=== PATIENT | female | born 1990 | race Caucasian/White ===

== ENCOUNTER 2023-02-19 18:03 | Outpatient (CLI) | payer OTHER, SELFPAY | END 2023-02-19 18:04 | disposition home or self-care (01) | LOC: LKVREF 18:06 | PROVIDERS: Visit Provider Physician Assistant | DX: R10.13 Epigastric pain (principal) | CPT/HCPCS: 80076 ==

== ENCOUNTER 2023-02-24 18:39 | Emergency (ER) | payer OTHER, SELFPAY ==
[2023-02-24 18:50] VITALS: BP 127/82; PULSE 94; RESP 16; TEMP 36.4; O2SAT 99; BMI 27.5
--- NOTE | 2023-02-24 19:12 | ED.GENADULT ---
HPI - General Adult General Chief complaint: Back Injury/Pain Stated complaint: Back and abdominal pain Time Seen by Provider: 02/24/23 19:09 History of Present Illness HPI narrative: 1.5 weeks abdominal pain that wraps around to the back. Was recently seen at for this. Ibuprofen and moving around helps pain to improve. Has not tried any other medications. States greasy food typically makes pain worse. Was supposed to see PCP today but appointment got cancelled. Also reports feeling very bloated since this began. 32-year-old woman presenting to the emergency department with complaint of right upper abdominal pain wrapping around to her back. Been going on now for about 2 weeks. Was seen in urgent care last week with normal transaminases and urinalysis. Was recommended for an ultrasound it looks like. Does not have a family history of gallbladder disease. Pain seems to be present most mornings in the morning getting a little bit better over the course of the day though admittedly greasy foods will make it worse. She describes a pressure and a general bloating and then again radiating into the right back but seems to be wrapping around the upper abdomen and sometimes as well. Is not worsened with movement. She does not have any back issues. With this pain sometimes will taken ibuprofen and may improve it. Was to see be seen in primary care today but sounds like the appointment was canceled. Does not have a family history of biliary/gallbladder disease. Related Data Previous Rx's Medication Instructions Recorded omeprazole 40 mg capsule,delayed 40 mg PO DAILY #15 caps 02/24/23 release Allergies Allergy/AdvReac Type Severity Reaction Status Date / Time No Known Drug Allergies Allergy Verified 02/24/23 18:53 Review of Systems Status of ROS: Reports: 6 or more systems reviewed and unremarkable except as noted in History and below [facility] Medical History Epigastric pain ?R10.13 - Epigastric pain (ICD-10) Social History Smoking Status: Never smoker Do you use any of these nicotine containing products: None Second hand tobacco smoke exposure: No How often do you have a drink containing alcohol: 2-4 times a month How many standard drinks containing alcohol do you have on a typical day: 1 or 2 How often do you have six or more drinks on one occasion: Never AUDIT-C Alcohol total score: 2 Non-prescribed substance use: denies use service: No Exam Narrative: Exam Narrative: Pleasant. NAD. Skin is warm and dry. No rashes evident. Breathing easily. Heart in an elevated rate but regular rhythm. No murmur rub or gallop identified. Lungs are clear. Abdomen is soft. Does seem little full generally but not tympanitic. She is mildly uncomfortable to palpation in the right upper quadrant and epigastrium. Absent Davidson's. No percussive flank tenderness. Rotates in the bed without apparent difficulty. Abdomen otherwise soft and without masses nontender. Const: Vital Signs, click to edit/add: Vital Signs - 24 hr 02/24/23 18:50 Temperature 97.6 F Pulse Rate [Pulse Oximeter] 94 Respiratory Rate 16 Blood Pressure [Ri ght Upper Arm] 127/82 Pulse Oximetry 99 Oxygen Delivery Me thod Room Air Documenting provider has reviewed patient's vital signs: yes Course Vital Signs Vital signs: Initial Vital Signs Temperature 97.6 F 02/24/23 18:50 Temperature Source Temporal Artery Scan 02/24/23 18:50 Pulse Rate 94 02/24/23 18:50 Pulse Rhythm Regular 02/24/23 18:50 Pulse Strength 3+ Normal 02/24/23 18:50 Respiratory Rate 16 02/24/23 18:50 Blood Pressure 127/82 02/24/23 18:50 Blood Pressure Mean 97 02/24/23 18:50 Blood Pressure Position Sitting 02/24/23 18:50 Pulse Oximetry 99 02/24/23 18:50 Oxygen Delivery Method Room Air 02/24/23 18:50 Vital Signs Temperature 97.6 F 02/24/23 18:50 Pulse Rate 94 02/24/23 18:50 Respiratory Rate 16 02/24/23 18:50 Blood Pressure 127/82 02/24/23 18:50 Pulse Oximetry 99 02/24/23 18:50 Oxygen Delivery Method Room Air 02/24/23 18:50 Temperature 97.6 F 02/24/23 18:50 Pulse Rate 94 02/24/23 18:50 Respiratory Rate 16 02/24/23 18:50 Blood Pressure 127/82 02/24/23 18:50 Pulse Oximetry 99 02/24/23 18:50 Oxygen Delivery Method Room Air 02/24/23 18:50 Medical Decision Making MDM Narrative Medical decision making narrative: Certainly gallbladder disease/biliary colic is leading in differential. Could be related to the pancreas as well. Possibly urinary tract does not otherwise seem to have any urinary tract symptoms. Other vascular disruption or issue. Does not seem to have pulmonary symptoms consistent with low-lying pneumonia. This is not clearly reproducible to suggest a musculoskeletal etiology. At this point will request ultrasound and repeat labs. Ultrasound noted to be unremarkable per my conversation with forming yardage control operator. Radiology over-read noted same. 4 mm common bile duct. Labs are unremarkable with normal transaminases though with lipase pending on departure. Story still seems to be biliary colic. At this point would recommend outpatient follow-up, perhaps for HIDA scan or other? See patient discharge plan Medical Records Medical records reviewed: Yes I reviewed the patient's medical records Lab Data Lab results reviewed: Yes I reviewed the patient's lab results Labs: Lab Results 02/24/23 02/24/23 02/24/23 Range/Units 19:42 19:52 19:52 WBC 7.80 (4.50-11.00) K/uL RBC 4.92 (4.00-5.20) m/uL Hgb 12.4 (12.0-16.0) gm/dL Hct 39.6 (33.0-51.0) % MCV 81 (80-100) fL MCH 25 L (26-34) pg MCHC 31 L (32-36) gm/dL RDW Coeff of Jose 14.7 (11.5-15.5) % Plt Count 313 (140-440) K/uL Neut % (Auto) 67.6 (42.0-72.0) % Lymph % (Auto) 21.8 (20-44) % [place] % (Auto) 8.8 (0.0-11.0) % Eos % (Auto) 1.3 (0.0-7.0) % Baso % (Auto) 0.4 (0.0-3.0) % Neut # (Auto) 5.27 (1.7-7.0) K/uL Lymph # (Auto) 1.70 (0.90-2.90) K/uL [place] # (Auto) 0.70 (0.00-0.90) K/UL Eos # (Auto) 0.10 (0.00-0.50) K/uL Baso # (Auto) 0.03 (0.00-0.30) K/uL Abs Immat Gran (auto) 0.01 (0.00-0.30) K/uL Imm/Tot Granulo (auto) 0.1 % Sodium Cancelled 138 Potassium Cancelled Chloride Carbon Dioxide Anion Gap BUN Creatinine Estimated Creat Clear Estimated GFR Glucose Calcium Total Bilirubin (0.1-1.5) mg/dL Direct Bilirubin (0.0-0.5) mg/dL AST (12-35) U/L ALT (4-35) U/L Alkaline Phosphatase (40-150) U/L Total Protein (6.0-8.3) g/dL Albumin (3.3-5.0) g/dL Lipase (23-300) U/L Urine Color Yellow (Yellow) Urine Appearance Clear (Clear) Urine pH 7.5 (5.0-8.5) Ur Specific [place] 1.015 (1.000-1.030) Urine Protein Negative (Negative) Urine Glucose (UA) Negative (Negative) Urine Ketones Negative (Negative) Urine Blood Negative (Negative) Urine Nitrite Negative (Negative) Urine Bilirubin Negative (Negative) Urine Urobilinogen 0.2 (0.2-1.0) Ur Leukocyte Esterase Negative (Negative) Urine RBC 0-2 (0-2) Urine WBC 0-2 (0-5) Ur Squamous Epith Cells None (None-Few) Urine Bacteria Moderate A (None) 02/24/23 02/24/23 02/24/23 Range/Units 19:52 19:52 19:52 WBC (4.50-11.00) K/uL RBC (4.00-5.20) m/uL Hgb (12.0-16.0) gm/dL Hct (33.0-51.0) % MCV (80-100) fL MCH (26-34) pg MCHC (32-36) gm/dL RDW Coeff of Jose (11.5-15.5) % Plt Count (140-440) K/uL Neut % (Auto) (42.0-72.0) % Lymph % (Auto) (20-44) % [place] % (Auto) (0.0-11.0) % Eos % (Auto) (0.0-7.0) % Baso % (Auto) (0.0-3.0) % Neut # (Auto) (1.7-7.0) K/uL Lymph # (Auto) (0.90-2.90) K/uL [place] # (Auto) (0.00-0.90) K/UL Eos # (Auto) (0.00-0.50) K/uL Baso # (Auto) (0.00-0.30) K/uL Abs Immat Gran (auto) (0.00-0.30) K/uL Imm/Tot Granulo (auto) % Sodium Potassium 3.7 Chloride Cancelled 105 Carbon Dioxide Cancelled 26 Anion Gap Cancelled BUN Creatinine Estimated Creat Clear Estimated GFR Glucose Calcium Total Bilirubin (0.1-1.5) mg/dL Direct Bilirubin (0.0-0.5) mg/dL AST (12-35) U/L ALT (4-35) U/L Alkaline Phosphatase (40-150) U/L Total Protein (6.0-8.3) g/dL Albumin (3.3-5.0) g/dL Lipase (23-300) U/L Urine Color (Yellow) Urine Appearance (Clear) Urine pH (5.0-8.5) Ur Specific [place] (1.000-1.030) Urine Protein (Negative) Urine Glucose (UA) (Negative) Urine Ketones (Negative) Urine Blood (Negative) Urine Nitrite (Negative) Urine Bilirubin (Negative) Urine Urobilinogen (0.2-1.0) Ur Leukocyte Esterase (Negative) Urine RBC (0-2) Urine WBC (0-5) Ur Squamous Epith Cells (None-Few) Urine Bacteria (None) 02/24/23 02/24/23 02/24/23 Range/Units 19:52 19:52 19:52 WBC (4.50-11.00) K/uL RBC (4.00-5.20) m/uL Hgb (12.0-16.0) gm/dL Hct (33.0-51.0) % MCV (80-100) fL MCH (26-34) pg MCHC (32-36) gm/dL RDW Coeff of Jose (11.5-15.5) % Plt Count (140-440) K/uL Neut % (Auto) (42.0-72.0) % Lymph % (Auto) (20-44) % [place] % (Auto) (0.0-11.0) % Eos % (Auto) (0.0-7.0) % Baso % (Auto) (0.0-3.0) % Neut # (Auto) (1.7-7.0) K/uL Lymph # (Auto) (0.90-2.90) K/uL [place] # (Auto) (0.00-0.90) K/UL Eos # (Auto) (0.00-0.50) K/uL Baso # (Auto) (0.00-0.30) K/uL Abs Immat Gran (auto) (0.00-0.30) K/uL Imm/Tot Granulo (auto) % Sodium Potassium Chloride Carbon Dioxide Anion Gap 7 BUN Cancelled 11 Creatinine Cancelled 0.6 Estimated Creat Clear Cancelled Estimated GFR Glucose Calcium Total Bilirubin (0.1-1.5) mg/dL Direct Bilirubin (0.0-0.5) mg/dL AST (12-35) U/L ALT (4-35) U/L Alkaline Phosphatase (40-150) U/L Total Protein (6.0-8.3) g/dL Albumin (3.3-5.0) g/dL Lipase (23-300) U/L Urine Color (Yellow) Urine Appearance (Clear) Urine pH (5.0-8.5) Ur Specific [place] (1.000-1.030) Urine Protein (Negative) Urine Glucose (UA) (Negative) Urine Ketones (Negative) Urine Blood (Negative) Urine Nitrite (Negative) Urine Bilirubin (Negative) Urine Urobilinogen (0.2-1.0) Ur Leukocyte Esterase (Negative) Urine RBC (0-2) Urine WBC (0-5) Ur Squamous Epith Cells (None-Few) Urine Bacteria (None) 02/24/23 02/24/23 02/24/23 Range/Units 19:52 19:52 19:52 WBC (4.50-11.00) K/uL RBC (4.00-5.20) m/uL Hgb (12.0-16.0) gm/dL Hct (33.0-51.0) % MCV (80-100) fL MCH (26-34) pg MCHC (32-36) gm/dL RDW Coeff of Jose (11.5-15.5) % Plt Count (140-440) K/uL Neut % (Auto) (42.0-72.0) % Lymph % (Auto) (20-44) % [place] % (Auto) (0.0-11.0) % Eos % (Auto) (0.0-7.0) % Baso % (Auto) (0.0-3.0) % Neut # (Auto) (1.7-7.0) K/uL Lymph # (Auto) (0.90-2.90) K/uL [place] # (Auto) (0.00-0.90) K/UL Eos # (Auto) (0.00-0.50) K/uL Baso # (Auto) (0.00-0.30) K/uL Abs Immat Gran (auto) (0.00-0.30) K/uL Imm/Tot Granulo (auto) % Sodium Potassium Chloride Carbon Dioxide Anion Gap BUN Creatinine Estimated Creat Clear 115.16 Estimated GFR Cancelled 121 Glucose Cancelled 85 Calcium Cancelled Total Bilirubin (0.1-1.5) mg/dL Direct Bilirubin (0.0-0.5) mg/dL AST (12-35) U/L ALT (4-35) U/L Alkaline Phosphatase (40-150) U/L Total Protein (6.0-8.3) g/dL Albumin (3.3-5.0) g/dL Lipase (23-300) U/L Urine Color (Yellow) Urine Appearance (Clear) Urine pH (5.0-8.5) Ur Specific [place] (1.000-1.030) Urine Protein (Negative) Urine Glucose (UA) (Negative) Urine Ketones (Negative) Urine Blood (Negative) Urine Nitrite (Negative) Urine Bilirubin (Negative) Urine Urobilinogen (0.2-1.0) Ur Leukocyte Esterase (Negative) Urine RBC (0-2) Urine WBC (0-5) Ur Squamous Epith Cells (None-Few) Urine Bacteria (None) 02/24/23 Range/Units 19:52 WBC (4.50-11.00) K/uL RBC (4.00-5.20) m/uL Hgb (12.0-16.0) gm/dL Hct (33.0-51.0) % MCV (80-100) fL MCH (26-34) pg MCHC (32-36) gm/dL RDW Coeff of Jose (11.5-15.5) % Plt Count (140-440) K/uL Neut % (Auto) (42.0-72.0) % Lymph % (Auto) (20-44) % [place] % (Auto) (0.0-11.0) % Eos % (Auto) (0.0-7.0) % Baso % (Auto) (0.0-3.0) % Neut # (Auto) (1.7-7.0) K/uL Lymph # (Auto) (0.90-2.90) K/uL [place] # (Auto) (0.00-0.90) K/UL Eos # (Auto) (0.00-0.50) K/uL Baso # (Auto) (0.00-0.30) K/uL Abs Immat Gran (auto) (0.00-0.30) K/uL Imm/Tot Granulo (auto) % Sodium Potassium Chloride Carbon Dioxide Anion Gap BUN Creatinine Estimated Creat Clear Estimated GFR Glucose Calcium 9.6 Total Bilirubin 0.4 (0.1-1.5) mg/dL Direct Bilirubin 0.1 (0.0-0.5) mg/dL AST 24 (12-35) U/L ALT 13 (4-35) U/L Alkaline Phosphatase 84 (40-150) U/L Total Protein 7.6 (6.0-8.3) g/dL Albumin 4.5 (3.3-5.0) g/dL Lipase 36 (23-300) U/L Urine Color (Yellow) Urine Appearance (Clear) Urine pH (5.0-8.5) Ur Specific [place] (1.000-1.030) Urine Protein (Negative) Urine Glucose (UA) (Negative) Urine Ketones (Negative) Urine Blood (Negative) Urine Nitrite (Negative) Urine Bilirubin (Negative) Urine Urobilinogen (0.2-1.0) Ur Leukocyte Esterase (Negative) Urine RBC (0-2) Urine WBC (0-5) Ur Squamous Epith Cells (None-Few) Urine Bacteria (None) Discharge Plan Discharge Clinical Impression: Right upper quadrant abdominal pain, Flank pain Patient Disposition: Home w/ Parent or Adult Condition: Stable Additional Instructions: It does sound as though you are experiencing biliary colic. As I said, the ultrasound looked normal; as were your labs. I think the next step for you is to tomorrow call for an appointment with general surgery. We can provide you with the phone number. Otherwise you might consider taking a proton pump inhibitor(an acid store associate) like omeprazole daily for up to 2 weeks. And return for marked increase in persistent pain, repeated vomiting, shortness of breath, associated fever. Prescriptions: New omeprazole 40 mg capsule,delayed release(DR/EC) 40 mg PO DAILY Qty: 15 0RF Follow Up/Referrals: Provider,Not a Local [Primary Care Provider] - Stand Alone Forms: [employer] Info Instructions
--- NOTE | 2023-02-24 19:39 | CRLHL7_ITS ---
For Patients: As a result of the Century Cures Act, medical imaging exams and procedure reports are released immediately into your electronic medical record. You may view this report before your referring provider. If you have questions, please contact your health care provider. INDICATION: Right upper quadrant pain. TECHNIQUE: Ultrasound abdomen limited. Sonographic images of the right upper quadrant were obtained using malin-scale and color Doppler images. Permanently recorded images are archived. COMPARISON: None. FINDINGS: Liver: Normal in size and echotexture. No suspicious masses. No intrahepatic biliary dilatation. Gallbladder: No stones or sludge. Normal wall thickness. No pericholecystic fluid. Negative sonographic Davidson`s sign. Common bile duct: Non-dilated measuring 4 mm. Pancreas: Unremarkable. Right kidney: Normal in size. Normal echotexture and cortex. No suspicious masses, stones, or hydronephrosis. Vasculature: Proximal abdominal aorta and IVC are unremarkable. IMPRESSION: Unremarkable right upper quadrant ultrasound. Dictated by Orlando Cordova MD @ 02/24/2023 9:07:18 PM (Electronically Signed)
[2023-02-24 19:57] LABS: Appearance Urine Clear (Clear); Bilirubin Urine Negative (Negative); Blood Urine Negative (Negative); Color Urine Yellow (Yellow); Glucose Urine Negative (Negative); Ketones Urine Negative (Negative); Leukocyte Esterase Urine Negative (Negative); Nitrite Urine Negative (Negative); Protein Urine Negative (Negative); Specific Gravity Urine 1.015 (1.000-1.030); Urobilinogen Urine 0.2 (0.2-1.0); pH Urine 7.5 (5.0-8.5)
[2023-02-24 20:02] LABS: Basophils Absolute Auto 0.03 K/uL (0.00-0.30); Basophils Percent Auto 0.4 % (0.0-3.0); Eosinophils Percent Auto 1.3 % (0.0-7.0); Hematocrit 39.6 % (33.0-51.0); Hemoglobin* 12.4 gm/dL (12.0-16.0); Immature Granulocytes Abs Auto 0.01 K/uL (0.00-0.30); Immature Granulocytes Pct Auto 0.1 %; Lymphocytes Percent Auto 21.8 % (20-44); Mean Corpuscular HGB Conc 31 gm/dL (32-36); Mean Corpuscular Hemoglobin 25 pg (26-34); Mean Corpuscular Volume 81 fL (80-100); Monocytes Percent Auto 8.8 % (0.0-11.0); Neutrophils Absolute Auto 5.27 K/uL (1.7-7.0); Neutrophils Percent Auto 67.6 % (42.0-72.0); Platelet Count* 313 K/uL (140-440); RDW Coefficient of Variation % 14.7 % (11.5-15.5); Red Blood Count 4.92 m/uL (4.00-5.20)
[2023-02-24 20:08] LABS: Bacteria Urine Moderate; RBC Urine 0-2 (0-2); WBC Urine 0-2 (0-5)
[2023-02-24 20:08] LABS: Slide Review Reflex No
[2023-02-24 20:23] LABS: Albumin* 4.5 g/dL (3.3-5.0); Chloride* 105 mmol/L (96-114); Sodium* 138 mmol/L (135-149)
[2023-02-24 20:24] LABS: Potassium* 3.7 mmol/L (3.6-5.1)
[2023-02-24 20:26] LABS: Alkaline Phosphatase* 84 U/L (40-150); Anion Gap 7 mEq/L (7-15); Aspartate Amino Transferase* 24 U/L (12-35); Bilirubin Direct* 0.1 mg/dL (0.0-0.5); Bilirubin Total* 0.4 mg/dL (0.1-1.5); Blood Urea Nitrogen* 11 mg/dL (5-24); Carbon Dioxide* 26 mmol/L (20-32); Creatinine* 0.6 mg/dL (0.5-1.5); Est. Creatinine Clearance* 115.16; Estimated Glomerular Filt Rate 121 ml/min; Glucose* 85 mg/dL (60-115); Total Protein* 7.6 g/dL (6.0-8.3)
[2023-02-24 20:27] LABS: Alanine Aminotransferase* 13 U/L (4-35); Calcium* 9.6 mg/dL (8.4-10.6)
--- NOTE | 2023-02-24 20:45 | ED.NURSE ---
Due to backorder of lipase solution in lab, lipase blood work orders are delayed. Dr. Cheema notified verbally @ 2043.
[2023-02-26 06:38] LABS: Lipase* 36 U/L (23-300)
== END 2023-02-24 21:55 | disposition home or self-care (01) ==
PROVIDERS: Emergency Provider Family Medicine
DX: R10.9 Unspecified abdominal pain (principal)
CPT/HCPCS: 36415; 76705; 80048; 80076; 81001; 83690; 85025; 87086; 99284

== ENCOUNTER 2023-03-08 19:20 | Emergency (ER) | payer OTHER, SELFPAY ==
[2023-03-08 19:28] VITALS: BP 121/86; PULSE 97; RESP 18; TEMP 36.9; O2SAT 97; BMI 27.5
[2023-03-08 19:32] VITALS: RESP 16
[2023-03-08 19:54] LABS: Appearance Urine Clear (Clear); Bilirubin Urine Negative (Negative); Blood Urine Negative (Negative); Color Urine Yellow (Yellow); Glucose Urine Negative (Negative); Ketones Urine Negative (Negative); Leukocyte Esterase Urine Negative (Negative); Nitrite Urine Negative (Negative); Protein Urine Negative (Negative); Urobilinogen Urine 0.2 (0.2-1.0); pH Urine 7.5 (5.0-8.5)
[2023-03-08 19:55] LABS: Ur HCG Qualitative* Negative (Negative)
[2023-03-08 20:10] LABS: Bacteria Urine Few; RBC Urine 0-2 (0-2); Squamous Epithelial Cell Urine Few (None-Few); WBC Urine 0-2 (0-5)
--- NOTE | 2023-03-08 20:32 | ED_ITS ---
HPI - General Adult General Chief complaint: Fever Stated complaint: Fever, right side abdominal pain Time Seen by Provider: 03/08/23 20:06 History of Present Illness HPI narrative: Patient is a 32-year-old woman who is not felt well for approximately 3 weeks. She has had right upper quadrant pain intermittently and has been evaluated in the emergency room with negative ultrasound of her gallbladder. She did follow up in primary care clinic and has been scheduled for a HIDA scan which is not scheduled for approximately a month. Patient is still having daily right upper quadrant pain general malaise body aches. She did state that she had a fever today which was very concerning to her. As a result she presented to the emergency bryce. Her temperature is currently normal and her abdominal pain has resolved. She shows no signs of jaundice no peritonitis no nausea no vomiting no change in her bowel or bladder. Patient has had number of recent negative tests. Related Data Previous Rx's Medication Instructions Recorded omeprazole 40 mg capsule,delayed 40 mg PO DAILY #15 caps 02/24/23 release Allergies Allergy/AdvReac Type Severity Reaction Status Date / Time No Known Drug Allergies Allergy Verified 02/27/23 15:00 Review of Systems Status of ROS: Reports: 10 or more systems reviewed and unremarkable except as noted in History and below [facility] Medical History Epigastric pain ?R10.13 - Epigastric pain (ICD-10) Social History Smoking Status: Never smoker Do you use any of these nicotine containing products: None Second hand tobacco smoke exposure: No How often do you have a drink containing alcohol: 2-4 times a month How many standard drinks containing alcohol do you have on a typical day: 1 or 2 How often do you have six or more drinks on one occasion: Never AUDIT-C Alcohol total score: 2 Non-prescribed substance use: denies use service: No Exam Narrative: Exam Narrative: EXAM GENERAL: Patient appears comfortable and well. EYES: No scleral icterus. ENT: Tympanic membranes and oropharynx normal. THYROID: no thyroid nodules or thyromegaly. LYMPH: No supraclavicular or cervical lymphadenopathy. SKIN: Visible skin seen during exam normal or with benign process only. EXT: No dependent lower extremity pedal edema. HEART: Regular rate and rhythm with no murmurs, rubs, or gallops. LUNGS: Clear to auscultation bilaterally with no crackles or wheezes. ABD: Soft, non tender, non distended. PSYCH: Good eye contact, speech is not pressured. Const: Vital Signs, click to edit/add: Vital Signs - 24 hr 03/08/23 19:28 03/08/23 19:32 03/08/23 21:09 Temperature 98.5 F 98.4 F Pulse Rate [Left P ulse Oximeter] 97 84 Respiratory Rate 18 16 16 Blood Pressure [Ri t Upper Arm] 121/86 118/74 Pulse Oximetry 97 97 Oxygen Delivery Me thod Room Air Room Air Room Air Course Course ED Course: Patient seen examined. Will repeat her lab work. I do think she needs sooner HIDA scan will try to get that arranged for her. Vital Signs Vital signs: Initial Vital Signs Temperature 98.5 F 03/08/23 19:28 Temperature Source Temporal Artery Scan 03/08/23 19:28 Pulse Rate 97 03/08/23 19:28 Respiratory Rate 18 03/08/23 19:28 Blood Pressure 121/86 03/08/23 19:28 Blood Pressure Mean 97 03/08/23 19:28 Blood Pressure Position Sitting 03/08/23 19:28 Pulse Oximetry 97 03/08/23 19:28 Oxygen Delivery Method Room Air 03/08/23 19:28 Vital Signs Temperature 98.5 F 03/08/23 19:28 Pulse Rate 97 03/08/23 19:28 Respiratory Rate 18 03/08/23 19:28 Blood Pressure 121/86 03/08/23 19:28 Pulse Oximetry 97 03/08/23 19:28 Oxygen Delivery Method Room Air 03/08/23 19:28 Temperature 98.4 F 03/08/23 21:09 Pulse Rate 84 03/08/23 21:09 Respiratory Rate 16 03/08/23 21:09 Blood Pressure 118/74 03/08/23 21:09 Pulse Oximetry 97 03/08/23 21:09 Oxygen Delivery Method Room Air 03/08/23 21:09 Medical Decision Making MDM Narrative Medical decision making narrative: Patient's workup is again unremarkable. Her vital signs are stable. I do think she is having some low-grade coli cystitis. I did give her my card will try to get her HIDA scan arrange earlier than her scheduled 1 in a month. In the interim she will take Tylenol Motrin rest and fluids and I will be in followup with her on Friday through my office. Differential Diagnosis Differential Diagnosis: Cholecystitis urinary tract infection colitis acute appendicitis viral sy Lab Data Labs: Lab Results 03/08/23 03/08/23 Range/Units 19:50 20:30 WBC 4.35 L (4.50-11.00) K/uL RBC 5.00 (4.00-5.20) m/uL Hgb 12.6 (12.0-16.0) gm/dL Hct 39.5 (33.0-51.0) % MCV 79 L (80-100) fL MCH 25 L (26-34) pg MCHC 32 (32-36) gm/dL RDW Coeff of Jose 14.5 (11.5-15.5) % Plt Count 282 (140-440) K/uL Neut % (Auto) 75.6 H (42.0-72.0) % Lymph % (Auto) 13.6 L (20-44) % [place] % (Auto) 9.9 (0.0-11.0) % Eos % (Auto) 0.2 (0.0-7.0) % Baso % (Auto) 0.5 (0.0-3.0) % Neut # (Auto) 3.30 (1.7-7.0) K/uL Lymph # (Auto) 0.60 L (0.90-2.90) K/uL [place] # (Auto) 0.40 (0.00-0.90) K/UL Eos # (Auto) 0.00 (0.00-0.50) K/uL Baso # (Auto) 0.00 (0.00-0.30) K/uL Abs Immat Gran (auto) 0.00 (0.00-0.30) K/uL Imm/Tot Granulo (auto) 0.2 % Sodium 139 (135-149) mmol/L Potassium 3.6 (3.6-5.1) mmol/L Chloride 106 (96-114) mmol/L Carbon Dioxide 22 (20-32) mmol/L Anion Gap 11 (7-15) mEq/L BUN 13 (5-24) mg/dL Creatinine 0.7 (0.5-1.5) mg/dL Estimated Creat Clear 98.71 Estimated GFR 117 ml/min Glucose 100 (60-115) mg/dL Calcium 9.1 (8.4-10.6) mg/dL Total Bilirubin 0.3 (0.1-1.5) mg/dL AST 24 (12-35) U/L ALT 15 (4-35) U/L Alkaline Phosphatase 80 (40-150) U/L Total Protein 7.9 (6.0-8.3) g/dL Albumin 4.5 (3.3-5.0) g/dL Amylase 61 (18-89) U/L Urine Color Yellow (Yellow) Urine Appearance Clear (Clear) Urine pH 7.5 (5.0-8.5) Ur Specific [place] 1.020 (1.000-1.030) Urine Protein Negative (Negative) Urine Glucose (UA) Negative (Negative) Urine Ketones Negative (Negative) Urine Blood Negative (Negative) Urine Nitrite Negative (Negative) Urine Bilirubin Negative (Negative) Urine Urobilinogen 0.2 (0.2-1.0) Ur Leukocyte Esterase Negative (Negative) Urine RBC 0-2 (0-2) Urine WBC 0-2 (0-5) Ur Squamous Epith Cells Few (None-Few) Urine Bacteria Few A (None) Urine HCG, Qual Negative (Negative) Discharge Plan Discharge Clinical Impression: Fever Patient Disposition: Home, Self-Care Condition: Stable Instructions: Fever in Adults (ED) Additional Instructions: follow-up with Dr. [facility] on Friday to discuss getting the HIDA scan moved up. Activity Level: No Restrictions Discharge Diet: Regular Prescriptions: No Action omeprazole 40 mg capsule,delayed release(DR/EC) 40 mg PO DAILY Qty: 15 0RF Follow Up/Referrals: Elsa Cleveland, MATERIALS MANAGEMENT SUPERVISOR, OUTBOUND SALES AGENT [Primary Care Provider] - Stand Alone Forms: [employer] Info Instructions
[2023-03-08 20:41] LABS: Basophils Percent Auto 0.5 % (0.0-3.0); Eosinophils Percent Auto 0.2 % (0.0-7.0); Hematocrit 39.5 % (33.0-51.0); Hemoglobin* 12.6 gm/dL (12.0-16.0); Immature Granulocytes Pct Auto 0.2 %; Lymphocytes Percent Auto 13.6 % (20-44); Mean Corpuscular HGB Conc 32 gm/dL (32-36); Mean Corpuscular Hemoglobin 25 pg (26-34); Mean Corpuscular Volume 79 fL (80-100); Monocytes Percent Auto 9.9 % (0.0-11.0); Neutrophils Percent Auto 75.6 % (42.0-72.0); Platelet Count* 282 K/uL (140-440); RDW Coefficient of Variation % 14.5 % (11.5-15.5); White Blood Count* 4.35 K/uL (4.50-11.00)
[2023-03-08 20:47] LABS: Slide Review Reflex No
[2023-03-08 20:54] LABS: Albumin* 4.5 g/dL (3.3-5.0)
[2023-03-08 20:55] LABS: Chloride* 106 mmol/L (96-114); Potassium* 3.6 mmol/L (3.6-5.1); Sodium* 139 mmol/L (135-149)
[2023-03-08 20:57] LABS: Amylase* 61 U/L (18-89); Anion Gap 11 mEq/L (7-15); Bilirubin Total* 0.3 mg/dL (0.1-1.5); Carbon Dioxide* 22 mmol/L (20-32); Creatinine* 0.7 mg/dL (0.5-1.5); Est. Creatinine Clearance* 98.71; Estimated Glomerular Filt Rate 117 ml/min; Total Protein* 7.9 g/dL (6.0-8.3)
[2023-03-08 20:58] LABS: Alanine Aminotransferase* 15 U/L (4-35); Alkaline Phosphatase* 80 U/L (40-150); Aspartate Amino Transferase* 24 U/L (12-35); Blood Urea Nitrogen* 13 mg/dL (5-24); Calcium* 9.1 mg/dL (8.4-10.6); Glucose* 100 mg/dL (60-115)
[2023-03-08 21:09] VITALS: BP 118/74; PULSE 84; RESP 16; TEMP 36.9; O2SAT 97
[2023-03-08 21:19] VITALS: BP 118/74; PULSE 84; RESP 16; TEMP 36.9
== END 2023-03-08 21:19 | disposition home or self-care (01) ==
PROVIDERS: Emergency Provider Internal Medicine; PCP Nurse Practitioner Family
DX: R50.9 Fever, unspecified (principal)
CPT/HCPCS: 36415; 80053; 81001; 81025; 82150; 85025; 87086; 99283

== ENCOUNTER 2023-03-18 11:42 | Outpatient (CLI) | payer OTHER, SELFPAY ==
--- NOTE | 2023-03-18 12:00 | CRLHL7_ITS ---
For Patients: As a result of the Century Cures Act, medical imaging exams and procedure reports are released immediately into your electronic medical record. You may view this report before your referring provider. If you have questions, please contact your health care provider. INDICATION: Abdominal pain. Negative ultrasound. TECHNIQUE: 5.1 mCi Tc-99m labeled Mebrofenin. 1.45 mcg Kinevac IV. FINDINGS: Normal uptake and excretion of tracer by the liver. Activity is identified promptly within the gallbladder and the extrahepatic biliary tree within 5 minutes after injection. The gallbladder continues to fill up to 1 hour. No biliary leak. After the administration of Kinevac, the gallbladder ejection fraction calculated at 92 percent which is within normal limits. The patient experienced nausea after Kinevac administration. IMPRESSION: 1. Normal HIDA scan. 2. Normal gallbladder ejection fraction. Dictated by Daljit Ham MD @ 03/18/2023 3:14:06 PM (Electronically Signed)
== END 2023-03-18 11:43 | disposition home or self-care (01) ==
LOC: NM 11:42
PROVIDERS: PCP Nurse Practitioner Family; Visit Provider Nurse Practitioner Family
DX: R10.11 Right upper quadrant pain (principal); R10.13 Epigastric pain
CPT/HCPCS: 78227; A9537; J2805

== ENCOUNTER 2024-12-03 07:07 | Outpatient (CLI) | payer OTHER, SELFPAY ==
--- NOTE | 2024-12-03 07:15 | CRLHL7_ITS ---
For Patients: As a result of the Century Cures Act, medical imaging exams and procedure reports are released immediately into your electronic medical record. You may view this report before your referring provider. If you have questions, please contact your health care provider. OBSTETRICAL ULTRASOUND TRANSVAGINAL, 12/03/2024 CLINICAL INDICATION: Dating. LMP: 09/30/2024 JOSSY by LMP: 07/07/2025 Gestational age: 9 weeks 1 day PREVIOUS ULTRASOUND: No TECHNIQUE: Real-time malin-scale imaging of the fetus was performed transvaginal. Transvaginal imaging was performed for better visualization. FINDINGS: CRL: 2.1 cm, 8 weeks 5 days; JOSSY 07/10/2025 heart rate: 161 BPM Gestational sac: 3.3 cm, appears within normal limits Yolk sac: 3.6 mm, appears within normal limits Right ovary: 3.7 x 1.8 x 2.0 cm Left ovary: 3.5 x 2.5 x 2.8 cm, CL IMPRESSION: 1. Single living intrauterine measuring 8 weeks 5 days with sonographic due date of 07/10/2025. 2. Corpus luteal cyst of left ovary. DANE TORO M.D. Diagnostic Radiologist [email or web address] Transcribed: 10:[address]/Dictated by: Dane Toro MD @ 12/06/2024 6:07:00 AM (Electronically Signed)
== END 2024-12-03 07:08 | disposition home or self-care (01) ==
PROVIDERS: PCP Nurse Practitioner Family; Visit Provider Physician Assistant
DX: O34.81 Maternal care for other abnormalities of pelvic organs, first trimester (principal); Z34.91 Encounter for supervision of normal pregnancy, unspecified, first trimester; N83.12 Corpus luteum cyst of left ovary; Z3A.08 8 weeks gestation of pregnancy; Z12.4 Encounter for screening for malignant neoplasm of cervix
CPT/HCPCS: 76817; 83021; 86592; 86703; 86704; 86706; 86762; 86787; 86803; 86850; 86900; 86901; 87086; 87340; 87491; 87591; 87624; 88142

== ENCOUNTER 2025-02-25 09:24 | Outpatient (CLI) | payer OTHER, SELFPAY ==
--- NOTE | 2025-02-25 10:00 | CRLHL7_ITS ---
For Patients: As a result of the Century Cures Act, medical imaging exams and procedure reports are released immediately into your electronic medical record. You may view this report before your referring provider. If you have questions, please contact your health care provider. INDICATION: Low heart rate in the office, 86 beats per minute COMPARISON: 12/03/2024 TECHNIQUE: Limited grayscale transabdominal ultrasound of the fetus and uterus with special attention to the cardiac rate. FINDINGS: Provided gestational age: 20 weeks 5 days There is a single active intrauterine gestation. heart rate is 137 beats per minute and regular, measured 3 different times over the course of 4 minutes. Placenta is posterior and normal. The single deepest pocket of amniotic fluid is 4.7 cm, normal. IMPRESSION: Normal heart rate. No complication seen. Dictated by Nia Michaud MD @ 02/25/2025 10:02:51 AM (Electronically Signed)
== END 2025-02-25 09:25 | disposition home or self-care (01) ==
LOC: US 09:25
PROVIDERS: PCP Nurse Practitioner Family; Visit Provider Obstetrics & Gynecology
DX: O36.8320 Maternal care for abnormalities of the fetal heart rate or rhythm, second trimester, not applicable or unspecified (principal); Z3A.20 20 weeks gestation of pregnancy
CPT/HCPCS: 76815

== ENCOUNTER 2025-03-11 07:03 | Outpatient (CLI) | payer OTHER, SELFPAY ==
--- NOTE | 2025-03-11 07:15 | CRLHL7_ITS ---
For Patients: As a result of the Cures Act, medical imaging exams and procedure reports are released immediately into your electronic medical record. You may view this report before your referring provider. If you have questions, please contact your health care provider. OB ULTRASOUND JOSSY by US: 07/10/2025. GA: 22 w, 5 d. Single. Comparison: 02/25/2025, 12/03/2024. INDICATION: AMA. Growth per MFM. TECHNIQUE: Real time grayscale imaging of the fetus was performed. Transabdominal. CERVIX: Visualized. TA Measurement: 4.53 cm. POSITIONING: Vertex. AMNIOTIC FLUID: 4.5 cm. SDP (N: greater than 2 x 1 cm) PLACENTA: Technique: Transabdominal. PLACENTA POSITION: Posterior. DOPPLER: heart rate: 137 bpm. BIOMETRY: BPD: 5.2 cm. 21 w, 6 d, 15 percent. HC: 19.9 cm. 22 w, 1 d, 15 percent. AC: 17.3 cm. 22 w, 2 d, 28 percent. FL: 3.9 cm. 22 w, 3 d, 29 percent. FL/AC ratio: 22.32 percent. HC/AC ratio: 1.15. EFW: 492 g. Weight: 1 lbs, 1 oz. age by this US: 22 w, 1 d. JOSSY by this US: 07/14/2025. Percentile by JOSSY: 24 percent. IMPRESSION: 1. Sonographic gestational age 22 weeks 1 day and sonographic due date 07/14/2025. Sonographic age is 4 days behind the clinical age. 2. Estimated weight 24th percentile. Abdominal circumference 28th percentile. Dane Adams M.D. Diagnostic Radiologist [email or web address] choi/Dictated by: Dane Adams MD @ 03/11/2025 1:52:00 PM (Electronically Signed)
== END 2025-03-11 07:04 | disposition home or self-care (01) ==
PROVIDERS: PCP Nurse Practitioner Family; Visit Provider Obstetrics & Gynecology
DX: O09.522 Supervision of elderly multigravida, second trimester (principal); Z3A.22 22 weeks gestation of pregnancy
CPT/HCPCS: 76816

== ENCOUNTER 2025-04-22 08:32 | Outpatient (CLI) | payer OTHER, SELFPAY | END 2025-04-22 08:33 | disposition home or self-care (01) | LOC: NFLDREF 04-25 20:21 | PROVIDERS: PCP Nurse Practitioner Family; Referring Provider Nurse Practitioner Family; Visit Provider Obstetrics & Gynecology | DX: Z34.93 Encounter for supervision of normal pregnancy, unspecified, third trimester (principal) | CPT/HCPCS: 86592 ==

== ENCOUNTER 2025-04-25 08:00 | Outpatient (CLI) | payer OTHER, SELFPAY | END 2025-04-25 08:01 | disposition home or self-care (01) | LOC: NFLDREF 04-26 17:55 | PROVIDERS: PCP Nurse Practitioner Family; Referring Provider Nurse Practitioner Family; Visit Provider Obstetrics & Gynecology | DX: Z34.93 Encounter for supervision of normal pregnancy, unspecified, third trimester (principal) | CPT/HCPCS: 82951; 82952 ==

== ENCOUNTER 2025-05-20 07:12 | Outpatient (CLI) | payer OTHER, SELFPAY ==
--- NOTE | 2025-05-20 07:15 | CRLHL7_ITS ---
For Patients: As a result of the Cures Act, medical imaging exams and procedure reports are released immediately into your electronic medical record. You may view this report before your referring provider. If you have questions, please contact your health care provider. OB ULTRASOUND JOSSY by US: 07/10/2025. GA: 32 w, 5 d. Single. Comparison: 03/11/2025, 02/25/2025, 12/03/2024. INDICATION: Gestational diabetes mellitus. TECHNIQUE: Real time grayscale imaging of the fetus was performed. Transabdominal. CERVIX: Not visualized. POSITIONING: Vertex. AMNIOTIC FLUID: 4.7 cm. SDP (N: greater than 2 x 1 cm) PLACENTA: Technique: Transabdominal. PLACENTA POSITION: Posterior. DOPPLER: heart rate: 161 bpm. BIOMETRY: BPD: 7.9 cm. 31 w, 4 d, 14%. HC: 30.2 cm. 33 w, 3 d, 31%. AC: 28.2 cm. 32 w, 1 d, 34%. FL: 6.1 cm. 31 w, 6 d, 18%. FL/AC ratio: 21.81%. HC/AC ratio: 1.07. EFW: 1916g. Weight: 4 lbs., 4 oz. age by this US: 32 w, 2 d. JOSSY by this US: 07/13/2025. Percentile by JOSSY: 24%. IMPRESSION: 1. Sonographic gestational age 32 weeks 2 days and sonographic due date 07/13/2025. Good correlation with dates. Normal interval growth. 2. Estimated weight 24th percentile. Abdominal circumference 34th percentile. Dane Adams M.D. Diagnostic Radiologist [email or web address] [email or web address] choi/Dictated by: Dane Adams MD @ 05/20/2025 9:28:00 AM (Electronically Signed)
== END 2025-05-20 07:13 | disposition home or self-care (01) ==
LOC: US 07:12
PROVIDERS: PCP Nurse Practitioner Family; Visit Provider Obstetrics & Gynecology
DX: O24.419 Gestational diabetes mellitus in pregnancy, unspecified control (principal); Z3A.32 32 weeks gestation of pregnancy
CPT/HCPCS: 76816

== ENCOUNTER 2025-06-03 09:37 | Outpatient (CLI) | payer OTHER, SELFPAY | END 2025-06-03 09:38 | disposition home or self-care (01) | LOC: NFLDREF 06-08 15:16 | PROVIDERS: PCP Nurse Practitioner Family; Referring Provider Nurse Practitioner Family; Visit Provider Obstetrics & Gynecology | DX: Z34.93 Encounter for supervision of normal pregnancy, unspecified, third trimester (principal) | CPT/HCPCS: 82728 ==

== ENCOUNTER 2025-06-17 07:19 | Outpatient (CLI) | payer OTHER, SELFPAY ==
--- NOTE | 2025-06-17 07:15 | CRLHL7_ITS ---
For Patients: As a result of the Cures Act, medical imaging exams and procedure reports are released immediately into your electronic medical record. You may view this report before your referring provider. If you have questions, please contact your health care provider. OB ULTRASOUND FOLLOW-UP CLINICAL HISTORY: GDM. TECHNIQUE: Real time malin scale imaging of the fetus was performed. Transabdominal imaging performed. COMPARISON: 05/20/2025, 03/11/2025, 02/25/2025, 12/03/2024. FINDINGS: JOSSY by US: 07/10/2025. GA: 36 weeks 5 days. Gestation: Single. Cervix: Not visualized. Positioning: Vertex. Amniotic Fluid: 4.1 cm SDP. Placenta: Technique: TA. Placenta Position: Fundal, posterior, left wall. Dopplers: Heart Rate: 125 bpm. BIOMETRY BPD: 8.6 cm, 34 weeks 4 days. 9.5% HC: 32.3 cm, 36 weeks 4 days. 19.7% AC: 33.2 cm, 37 weeks 1 day. 72.8% FL: 6.8 cm, 35 weeks 1 day. 11.9% FL/AC Ratio: 20.6% HC/AC Ratio: 0.97. EFW: 2884 grams, 6 lb 6 oz. Age by this US: 35 weeks 6 days. JOSSY by this US: 07/16/2025. Percentile by JOSSY: 41.3% IMPRESSION: 1. Sonographic gestational age 35 weeks 6 days and sonographic due date 07/16/2025. Sonographic age is 6 days behind the clinical age. 2. Estimated weight 41st percentile. Abdominal circumference 73rd percentile. Dane Adams M.D. Diagnostic Radiologist [email or web address] Transcribed: 10:54 am DW/Dictated by: Dane Adams MD @ 06/17/2025 9:41:00 AM (Electronically Signed)
== END 2025-06-17 07:20 | disposition home or self-care (01) ==
LOC: US 07:19
PROVIDERS: PCP Nurse Practitioner Family; Visit Provider Obstetrics & Gynecology
DX: O24.419 Gestational diabetes mellitus in pregnancy, unspecified control (principal); Z3A.36 36 weeks gestation of pregnancy
CPT/HCPCS: 76816

== ENCOUNTER 2025-06-17 08:20 | Outpatient (CLI) | payer OTHER, SELFPAY ==
[2025-06-18 10:15] LABS: Strep B DNA Probe Negative (Negative)
[2025-06-18 10:20] LABS: Strep B Susceptibility Needed? No
== END 2025-06-17 08:21 | disposition home or self-care (01) ==
LOC: NFLDREF 08:21
PROVIDERS: PCP Nurse Practitioner Family; Visit Provider Obstetrics & Gynecology
DX: Z34.93 Encounter for supervision of normal pregnancy, unspecified, third trimester (principal)
CPT/HCPCS: 87081; 87653